=== PATIENT | female | born 1995 | race African-American/Black ===

== ENCOUNTER 2020-09-27 15:04 | Emergency (ER) | payer SELFPAY ==
[~2020-09-27] VITALS: Ht 165.1 cm; Wt 49.0 kg
[2020-09-27 15:21] VITALS: BP 108/79
[2020-09-27] MEDS ORDERED: ACETAMINOPHEN 500MG TABLET PO ONE (16:15)
[2020-09-27] MEDS ORDERED: NAPR500T7 MT (17:01)
[2020-09-27] MEDS ORDERED: CYCL10TA7 MT (17:01)
== END 2020-09-27 17:10 | disposition home or self-care (01) ==
LOC: ER 15:40
DX: R51.9 Headache, unspecified (principal); V44.6XXA Car passenger injured in collision with heavy transport vehicle or bus in traffic accident, initial encounter; Y93.89 Activity, other specified; Y92.488 Other paved roadways as the place of occurrence of the external cause
CPT/HCPCS: 99282